=== PATIENT | female | born 2000 | race Caucasian/White ===

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

== ENCOUNTER 2021-05-28 00:35 | Day surgery (SDC) | payer BC, SELFPAY ==
[2021-05-13 13:37] VITALS: BMI 32.3
[2021-05-28 06:28] VITALS: BMI 37.0
[2021-05-28 06:29] VITALS: BP 132/93; PULSE 107; RESP 18; TEMP 36.3; O2SAT 98
[2021-05-28] MEDS: LACTATED RINGERS 1,000 ML 150 ML IV CONT (06:40)
--- NOTE | 2021-05-28 07:11 | P.PNAN_ITS ---
Anes - Initial Pre Proc Eval Procedure: Operation Date: 05/28/21 07:30 Proposed Procedures p Esophagogastroduodenoscopy & Colonoscopy - Tommy Myers MD Date/Time: 05/28/21 07:11 Surgeon: Tommy Myers MD Pre Op Diagnosis: abdominal distension, abdominal pain Patient Data Age: 20 Gender: F Height: 1.68 m Weight: 104.1 kg Last Vital Signs Temp 36.3 C L 05/28/21 06:29 Pulse 107 H 05/28/21 06:29 Resp 18 05/28/21 06:29 BP 132/93 H 05/28/21 06:29 Pulse Ox 98 05/28/21 06:29 Allergies Allergy/AdvReac Type Severity Reaction Status Date / Time guaifenesin [From Mucinex] Allergy Unknown Verified 05/28/21 06:26 amoxicillin AdvReac Diarrhea Verified 05/28/21 06:26 Home Medications Medication Instructions Recorded Confirmed Type drospiren-e.estrad-l.mefol 3 1 tablet PO DAILY #84 tablet 11/11/20 05/13/21 Rx mg-0.02 mg-0.451 mg(24)/0.451 mg(4)tablet Patient hx anesthesia problems: none Family hx anesthesia problems: post op nausea/vomiting Results Review: All pre-operative results and documents have been reviewed as part of the pre-operative evaluation. [facility] Past Medical History Medical History Anxiety Depression GERD (gastroesophageal reflux disease) Hypertension PCOS (polycystic ovarian syndrome) Surgical History Surgical History [place] teeth removed Family History Family History Mother Heart disease Depression Anxiety Social History Social History Smoking status: Never smoker Alcohol intake: never Substance use: never Gender identity (if verbalized by the patient): Female Spiritual care concerns: No Anes - Eval Final PreProcedure Day of Procedure 05/28/21 07:11 Patient weight: obese Heart: regular rate and rhythm Lungs: clear to auscultation Airway: Mallampati scale class II Neurological: alert and oriented Last oral intake: >/= 8 hours ASA classification: III Emergent: no Anesthetic plan: proceed Anesthesia type and monitoring: general GIVS and standard monitoring Results Review: All pre-operative results and documents have been reviewed as part of the pre-operative evaluation. Informed Consent: The patient's anesthetic plan and its attendant risks and benefits were discussed with the patient/family/POA. Questions were solicited and answers provided to the satisfaction of the patient/family/POA.
--- NOTE | 2021-05-28 07:23 | PM.HPGS ---
History of Present Illness History of Present Illness Consent: Risks, benefits, and alternatives have been discussed and questions answered. Patient agrees to proceed with procedure. Chief complaint: abdominal distension, abdominal pain Narrative: Viviana Baumann is a 20 year old female with gerd using antacids as needed, also bloating and constipation (BM every day but hard stool). Earlier today came to ER after syncope with dehydration because bowerl prep, now she is doing ok Review of Systems Constitutional: Constitutional: Denies headache(s) and Denies weakness Eyes: Eyes: Denies blurry vision ENT: Reports Normal hearing present, Denies headache(s) and Denies neck pain Cardiovascular: Cardiovascular: Denies chest pain and Denies dyspnea Respiratory: Respiratory: Denies dyspnea Gastrointestinal: Gastrointestinal: Reports no additional gastrointestinal complaints Genitourinary: Genitourinary: Denies dysuria Musculoskeletal: Musculoskeletal: Denies neck pain Integumentary/Breasts: Skin/Breast: Denies dry skin Neurologic: Reports Normal hearing present, Denies headache(s) and Denies weakness Psychiatric: Psychiatric: Denies anxiety Endocrine: Endocrine: Denies change in body appearance Hematologic/Lymphatic: Hematologic/Lymphatic: Denies easy bleeding Allergic/Immunologic: Allergic/Immunologic: Denies urticaria PMFSH Past Medical History Medical History (Updated 05/28/21 @ 07:26 by Tommy Myers MD) Anxiety Bloating Constipation Depression GERD (gastroesophageal reflux disease) Hypertension PCOS (polycystic ovarian syndrome) Surgical History Surgical History [place] teeth removed Family History Family History Mother Heart disease Depression Anxiety Social History Social History Smoking status: Never smoker Alcohol intake: never Substance use: never Gender identity (if verbalized by the patient): Female Spiritual care concerns: No Meds Home Medications and Allergies Home Medications Medication Instructions Recorded Confirmed Type drospiren-e.estrad-l.mefol 3 1 tablet PO DAILY #84 tablet 11/11/20 05/13/21 Rx mg-0.02 mg-0.451 mg(24)/0.451 mg(4)tablet Allergies Allergy/AdvReac Type Severity Reaction Status Date / Time guaifenesin [From Mucinex] Allergy Unknown Verified 05/28/21 06:26 amoxicillin AdvReac Diarrhea Verified 05/28/21 06:26 Vital Signs Vital Signs - 24 hr 05/28/21 06:29 Temperature 97.4 F L Pulse Rate 107 H Respiratory Rate 18 Blood Pressure 132/93 H Pulse Oximetry 98 Exam Const: General: comfortable and no acute distress HENMT: General nose exam: Normal nares present Eyes: General: appearance normal, both eyes and all related structures Neck: Neck: no JVD Resp: Auscultation: clear to auscultation bilaterally Cardio: Rate: regular rate Rhythm: regular rhythm GI: Inspection: non-distended GI Palp: Yes Soft to palpation Skin: General skin exam: normal color Neuro: General: gait normal Speech: normal speech Extrem: General: normal to inspection Psych: Mental Status: mental status grossly normal Assessment and Plan Assessment and plan (1) GERD (gastroesophageal reflux disease): Code(s): K21.9 - Gastro-esophageal reflux disease without esophagitis Status: Inactive Assessment and Plan: egd with bx (2) Bloating: Code(s): R14.0 - Abdominal distension (gaseous) Status: Acute (3) Constipation: Code(s): K59.00 - Constipation, unspecified Status: Acute Assessment and Plan: colonoscopy
[2021-05-28] MEDS: BENZOCAINE (*SP) 60 ML SPRAY CAN (HURRICAINE) 1 SPRAY MUCOUS MEM (07:32)
[2021-05-28 07:53] VITALS: BP 101/62; PULSE 79; RESP 12; O2SAT 98
--- NOTE | 2021-05-28 07:53 | SUR.OPER ---
EGD START 733, END 737 COLONOSCOPY START 742, END 075
[2021-05-28 08:03] VITALS: BP 105/67; PULSE 73; RESP 17; O2SAT 100
[2021-05-28 08:12] VITALS: BP 119/67; PULSE 70; RESP 18; O2SAT 100
== END 2021-05-28 08:26 | disposition home or self-care (01) ==
PROVIDERS: PCP Family Medicine; Visit Provider Internal Medicine Gastroenterology
PROC: 0DJ08ZZ Inspection of Upper Intestinal Tract, Via Natural or Artificial Opening Endoscopic (ICD-10-PCS; CPT 43235; principal; 2021-05-28 07:30)
DX: K59.00 Constipation, unspecified (principal); K21.9 Gastro-esophageal reflux disease without esophagitis; K29.70 Gastritis, unspecified, without bleeding; R10.13 Epigastric pain; R14.3 Flatulence; R55 Syncope and collapse; E86.0 Dehydration; F41.8 Other specified anxiety disorders; I10 Essential (primary) hypertension; E28.2 Polycystic ovarian syndrome; R14.0 Abdominal distension (gaseous)
CPT/HCPCS: 45378; 43239; 88305; J2001; J2704; J7120

== ENCOUNTER 2021-05-28 01:46 | Emergency (ER) | payer BC, SELFPAY ==
[2021-05-28 01:47] VITALS: BP 137/90; PULSE 110; RESP 18; TEMP 36.4; O2SAT 100
--- NOTE | 2021-05-28 01:58 | ECG_ITS ---
Measurements Intervals [place] Rate: 108 P: 30 AL: 108 QRS: 26 QRSD: 96 T: 5 QT: 334 QTc: 448 Interpretive Statements SINUS TACHYCARDIA WITH SHORT AL INTERVAL DELAYED PRECORDIAL R/S TRANSITION BORDERLINE T WAVE ABNORMALITY- INFERIOR LEADS ABNORMAL ECG Electronically Signed On 05-28-2021 6:52:51 [employer] by Beka Mercer D.O.
--- NOTE | 2021-05-28 02:06 | ED.SYNCOPE ---
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 She advises she has completed a bowel prep over the past 24 hours and while having a BM this evening, she began to feel light headed. She leaned forward to splash water on her face from the sink while remaining seated on the toilet. She reports she continued to feel weird and subsequently stood and ran into her mother's bedroom, where she experienced a syncopal episode. She recalls falling into laundry baskets and the bed. She denies hitting her head and she has no head or neck pain, back pain or otherwise injuries. She is scheduled to be here at this facility by 0600 for her colonoscopy. <KATHERINE Garcia - Last Filed: 05/28/21 02:15> MD complaint: felt faint <KATHERINE Garcia - Last Filed: 05/28/21 02:15> Onset (ago): hour(s) (1) <KATHERINE Garcia Last Filed: 05/28/21 02:15> Duration of episode: 1 <KATHERINE Garcia - Last Filed: 05/28/21 02:15> Prodromal symptoms: none <KATHERINE Garcia Last Filed: 05/28/21 02:15> Witnessed: Yes - by Other (mother) <KATHERINE Garcia - Last Filed: 05/28/21 02:15> Context: other (refer to HPI) <KATHERINE Garcia - Last Filed: 05/28/21 02:15> Injuries sustained associated with event: none <KATHERINE Garcia - Last Filed: 05/28/21 02:15> Current symptoms: back to baseline and other (tachycardic however, patient advises she is typically always tachycardic) <KATHERINE Garcia - Last Filed: 05/28/21 02:15> Treatments prior to arrival: none <KATHERINE Garcia - Last Filed: 05/28/21 02:15> Related Data Allergies/Adverse Reactions: Allergies Allergy/AdvReac Type Severity Reaction Status Date / Time amoxicillin AdvReac Diarrhea Verified 05/28/21 01:58 <KATHERINE Garcia - Last Filed: 05/28/21 02:15> Review of Systems Review of Systems: refer to HPI <KATHERINE Garcia - Last Filed: 05/28/21 02:15> [facility] Past Medical History Medical History: Medical History PCOS (polycystic ovarian syndrome) <KATHERINE Garcia - Last Filed: 05/28/21 02:15> Surgical History Surgical History: Surgical History [place] teeth removed <KATHERINE Garcia - Last Filed: 05/28/21 02:15> Family History Family History: Family History Mother Heart disease Depression Anxiety <KATHERINE Garcia - Last Filed: 05/28/21 02:15> Social History Social History: Social History Smoking status: Never smoker Alcohol intake: never Substance use: never Gender identity (if verbalized by the patient): Female Spiritual care concerns: No <KATHERINE Garcia - Last Filed: 05/28/21 02:15> Exam Const: General: cooperative, healthy appearing, comfortable, no acute distress, well developed, alert, awake and Physically active <KATHERINE Garcia - Last Filed: 05/28/21 02:15> Nutritional Appearance: obese <KATHERINE Garcia - Last Filed: 05/28/21 02:15> Orientation/consciousness: oriented to person, oriented to place, o
[2021-05-28] MEDS: SODIUM CHLORIDE 0.9% IV 1,000 ML 17 ML IV CONT (02:09)
[2021-05-28 02:10] LABS: Basophils Percent Auto 0.3 % (0.2-1.2); Eosinophils Absolute Auto 0.1 K/mm3 (0-0.3); Eosinophils Percent Auto 0.5 % (0-4.4); Hemoglobin 15.3 g/dL (12.0-15.0); Immature Granulocyte Absolute 0.03 K/mm3 (0.00-0.031); Immature Granulocyte Percent A 0.3 % (0-0.5); Lymphocytes Absolute Auto 4.64 K/mm3 (0.9-3.2); Lymphocytes Percent Auto 43.1 % (18.3-44.2); Mean Corpuscular HGB Conc 33.3 g/dl (32-36); Mean Corpuscular Volume 84.2 fl (80-100); Mean Platelet Volume 10.7 fl (7.4-10.4); Monocytes Absolute Auto 0.7 K/mm3 (0.1-0.6); Monocytes Percent Auto 6.4 % (2.6-8.5); Neutrophils Absolute Auto 5.3 K/mm3 (1.3-6.7); Neutrophils Percent Auto 49.4 % (45.5-73.1); Platelet Count Result 318 k/mm3 (150-375); Red Blood Count 5.46 M/mm3 (4.2-5.4); Red Cell Distribution Width 13.2 % (11.5-14.5); White Blood Count 10.8 K/mm3 (4.5-10.0)
[2021-05-28 02:48] LABS: Alanine Aminotransferase 52 U/L (4-35); Albumin Level 4.5 g/dL (3.7-5.6); Alkaline Phosphatase 91 U/L (45-116); Anion Gap 12 mmol/L (8-16); Aspartate Amino Transferase 28 U/L (14-36); Bilirubin,Total 0.4 mg/dL (0.2-1.3); Blood Urea Nitrogen 13 mg/dL (8-21); Calcium 9.7 mg/dL (8.9-10.7); Carbon Dioxide 21 mmol/L (22-30); Chloride 106 mmol/L (98-107); Estimated CRCL calculation 108 ml/min; Estimated Glomerular Filt Rate > 60; Glucose 111 mg/dL (65-110); Potassium 3.7 mmol/L (3.4-5.0); Sodium 139 mmol/L (134-143)
[2021-05-28 02:58] LABS: SPREG INTERNAL CONTROL Positive; Serum Qual hCG Negative
[2021-05-28 03:05] LABS: Add Urine Microscopic? YES; Appearance Urine Clear (Clear); Bilirubin Urine Negative (Negative); Blood Urine 3+ (Negative); Color Urine Yellow (Yellow); Glucose Urine UA Negative (Negative); Ketones Urine Negative (Negative); Leukocyte Esterase Ur Negative LEU/UL (Negative); Nitrate Urine Negative (Negative); Protein Urine 1+ mg/dL (Negative); RBC Urine 0-2 /hpf (0-2); Urobilinogen Urine Negative mg/dL (<2.0)
[2021-05-28 03:22] LABS: Thyroid Stimulating Hormone Reflex 0.939 uIU/mL (0.465-4.68)
[2021-05-28 03:50] VITALS: PULSE 87; O2SAT 100
== END 2021-05-28 03:53 | disposition home or self-care (01) ==
PROVIDERS: Nurse Practitioner Family; Emergency Provider Emergency Medicine; PCP Family Medicine
DX: R55 Syncope and collapse (principal); E28.2 Polycystic ovarian syndrome; R00.0 Tachycardia, unspecified; R94.31 Abnormal electrocardiogram [ECG] [EKG]
CPT/HCPCS: 36415; 80053; 81001; 84443; 84703; 85025; 93005; 96360; 99283; J7030

== ENCOUNTER 2021-09-26 05:43 | Emergency (ER) | payer OTHER, BC, SELFPAY ==
--- NOTE | ~2021-09-26 | XR_ITS ---
EXAMINATION: XR ankle LT min 3V DATE: 09/26/2021 06:51 INDICATION: Left ankle pain TECHNIQUE: Anteroposterior, lateral, mortise, and additional oblique view of the ankle were obtained. COMPARISON: 03/20/2013 FINDINGS: There is no fracture, dislocation, or subluxation. The bones, soft tissues, and joint space s are normal. IMPRESSION: 1. No acute osseous abnormality. Reviewed, dictated and finalized at location A.
--- NOTE | ~2021-09-26 | XR_ITS ---
EXAMINATION: XR knee LT 3V DATE: 09/26/2021 06:51 INDICATION: Left knee pain TECHNIQUE: Three views of the left knee were obtained. COMPARISON: 04/25/2016 FINDINGS: Alignment is normal. No fracture or osteochondral lesion. Joint spaces are normal with no e rosions. No joint effusion/synovitis. Soft tissues are unremarkable. IMPRESSION: 1. No acute osseous abnormality. Reviewed, dictated and finalized at location A.
[2021-09-26 05:48] VITALS: BP 128/84; PULSE 87; RESP 16; TEMP 36.7; O2SAT 100
--- NOTE | 2021-09-26 06:35 | ED.GENADULT ---
HPI - General Adult General Chief complaint: Extremity Injury, Lower Stated complaint: L knee injury Time Seen by Provider: 09/26/21 06:07 History of Present Illness HPI narrative: Patient a 21-year-old female that presents to the emergency department with chief complaint of left lower extremity injury. The patient reports she was at work and accidentally walked into a shelving unit the patient states she had below her knee fell forward and struck her knee against the metal. The patient reports she has a little bit of discomfort in her left ankle as well the patient denies head injury denies loss of consciousness denies neck pain. Patient denies any lacerations reports she does have bruising present on her knee. The patient reports previous injuries to that knee and has had Myles's cyst of the left knee Related Data Home Medications Medication Instructions Recorded Confirmed escitalopram oxalate 10 mg tablet 10 mg PO DAILY 07/22/21 07/28/21 (Lexapro) Allergies Allergy/AdvReac Type Severity Reaction Status Date / Time guaifenesin [From Mucinex] Allergy Unknown Verified 07/22/21 10:25 amoxicillin AdvReac Diarrhea Verified 07/22/21 10:25 Review of Systems Review of Systems: A 10 system review of systems was completed on the patient and is negative except for what is stated in the HPI. Nursing and ancillary documentation was reviewed. PMFSH Past Medical History Medical History Anxiety Bloating Constipation Depression GERD (gastroesophageal reflux disease) Hypertension PCOS (polycystic ovarian syndrome) Surgical History Surgical History [place] teeth removed Family History Family History Mother Heart disease Depression Anxiety Social History Social History Smoking status: Never smoker Alcohol intake: never Substance use: never Gender identity (if verbalized by the patient): Female Spiritual care concerns: No Exam Narrative: GENERAL: Well-appearing, well-nourished, and in no acute distress. HEAD: Normocephalic, atraumatic. EYES: PERRLA and EOMI. ENT: Nares clear, no rhinorrhea or epistaxis. Mucous membranes moist. NECK: Supple. CHEST: Clear to auscultation. No respiratory distress. HEART: Regular rate and rhythm. No murmur heard. Normal peripheral pulses. ABDOMEN: Soft, nontender, nondistended, normal active bowel sounds. EXTREMITIES: Normal range of motion. No edema. There is bruising present on the knee and inferior to the knee and the left lower extremity. There is mild tenderness to palpation in the left knee and there is mild tenderness to palpation of the left ankle. SKIN: Warm, dry, no rash. NEURO: No focal deficits. Alert and oriented x3. PSYCH: Normal mood and affect. Course Vital Signs Vital signs: Vital Signs Temperature 36.7 C 09/26/21 05:48 Pulse Rate 87 09/26/21 05:48 Respiratory Rate 16 09/26/21 05:48 Blood Pressure 128/84 09/26/21 05:48 Pulse Oximetry 100 09/26/21 05:48 Oxygen Delivery Room Air 09/26/21 05:48 Temperature 36.7 C 09/26/21 05:48 Pulse Rate 87 09/26/21 05:48 Respiratory Rate 16 09/26/21 05:48 Blood Pressure 128/84 09/26/21 05:48 Pulse Oximetry 100 09/26/21 05:48 Oxygen Delivery Room Air 09/26/21 05:48 Medical Decision Making Vital Signs Vital Signs: Vital Signs Temperature 36.7 C 09/26/21 05:48 Pulse Rate 87 09/26/21 05:48 Respiratory Rate 16 09/26/21 05:48 Blood Pressure 128/84 09/26/21 05:48 Pulse Oximetry 100 09/26/21 05:48 Oxygen Delivery Room Air 09/26/21 05:48 Temperature 36.7 C 09/26/21 05:48 Pulse Rate 87 09/26/21 05:48 Respiratory Rate 16 09/26/21 05:48 Blood Pressure 128/84 09/26/21 05:48 Pulse O
[2021-09-26 07:13] VITALS: BP 119/85; PULSE 73; RESP 20; O2SAT 100
== END 2021-09-26 07:14 | disposition home or self-care (01) ==
PROVIDERS: Emergency Provider Emergency Medicine; PCP Family Medicine
DX: S80.02XA Contusion of left knee, initial encounter (principal); I10 Essential (primary) hypertension; E28.2 Polycystic ovarian syndrome; K21.9 Gastro-esophageal reflux disease without esophagitis; F41.9 Anxiety disorder, unspecified; F32.A Depression, unspecified; W01.198A Fall on same level from slipping, tripping and stumbling with subsequent striking against other object, initial encounter
CPT/HCPCS: 73562; 73610; 99284

== ENCOUNTER 2021-10-28 03:53 | Emergency (ER) | payer BC, SELFPAY ==
--- NOTE | ~2021-10-28 | CT_ITS ---
EXAMINATION: CT abdomen pelvis w con DATE: 10/28/2021 05:17 INDICATION: Postcoital pelvic pain TECHNIQUE: Computed tomography (CT) of the abdomen and pelvis was performed with 100 mL Omnipaque-300 intravenous contrast. Automated exposure control and iterative reconstruction technique were employe d. The dose-length product was 1300.34 mGy-cm. COMPARISON: None FINDINGS: Lung bases are clear. Heart size is normal. No pericardial or pleural effusion. Liver, gallbladder, s pleen, pancreas, bilateral adrenal glands and kidneys are normal. Bowels including the appendix are n ormal. Bladder is normal. Anteverted uterus and bilateral adnexa are unremarkable. No free intraperit [place] gas or fluid. No pathologically enlarged abdominal or pelvic lymphadenopathy. Bones are unremar kable. IMPRESSION: 1. No acute intra-abdominal/pelvic process. Reviewed, dictated and finalized at location A.
[2021-10-28 03:56] VITALS: BP 135/87; PULSE 87; RESP 18; TEMP 36.7; O2SAT 100
[2021-10-28] MEDS: ONDANSETRON INJ 4 MG/2 ML VIAL IV PUSH (04:24)
[2021-10-28 04:44] LABS: Basophils Percent Auto 0.1 % (0.2-1.2); Eosinophils Absolute Auto 0.1 K/mm3 (0-0.3); Eosinophils Percent Auto 0.8 % (0-4.4); Hematocrit 40.7 % (37.0-47.0); Hemoglobin 13.1 g/dL (12.0-15.0); Immature Granulocyte Absolute 0.02 K/mm3 (0.00-0.031); Immature Granulocyte Percent A 0.3 % (0-0.5); Lymphocytes Percent Auto 42.2 % (18.3-44.2); Mean Corpuscular HGB Conc 32.2 g/dl (32-36); Mean Corpuscular Hemoglobin 26.5 pg (26-34); Mean Corpuscular Volume 82.2 fl (80-100); Mean Platelet Volume 10.9 fl (7.4-10.4); Monocytes Absolute Auto 0.6 K/mm3 (0.1-0.6); Monocytes Percent Auto 8.4 % (2.6-8.5); Neutrophils Absolute Auto 3.7 K/mm3 (1.3-6.7); Neutrophils Percent Auto 48.2 % (45.5-73.1); Platelet Count Result 286 k/mm3 (150-375); Red Blood Count 4.95 M/mm3 (4.2-5.4); Red Cell Distribution Width 13.2 % (11.5-14.5); White Blood Count 7.6 K/mm3 (4.5-10.0)
[2021-10-28 04:57] LABS: Alanine Aminotransferase 50 U/L (6-35); Albumin Level 4.2 g/dL (3.5-5.1); Alkaline Phosphatase 113 U/L (38-126); Anion Gap 9 mmol/L (8-16); Aspartate Amino Transferase 26 U/L (14-36); Bilirubin,Total 0.3 mg/dL (0.2-1.3); Blood Urea Nitrogen 16 mg/dL (7-17); Calcium 9.3 mg/dL (8.4-10.2); Carbon Dioxide 29 mmol/L (22-30); Chloride 103 mmol/L (98-107); Estimated CRCL calculation 107 ml/min; Estimated Glomerular Filt Rate > 60; Glucose 88 mg/dL (65-110); Lipase 91 U/L (23-300); Potassium 3.8 mmol/L (3.4-5.0); Sodium 141 mmol/L (137-145)
[2021-10-28 05:26] LABS: Appearance Urine Clear (Clear); Bilirubin Urine Negative (Negative); Blood Urine Negative (Negative); Color Urine Yellow (Yellow); Glucose Urine UA Negative (Negative); Ketones Urine Negative (Negative); Leukocyte Esterase Ur Negative LEU/UL (Negative); Nitrate Urine Negative (Negative); Protein Urine Negative (Negative); Specific Grav Ur 1.025 (1.001-1.035); Urobilinogen Urine 0.2 mg/dL (<2.0); pH Urine 5.5 (5.0-9.0)
[2021-10-28 05:29] LABS: Mucus Urine Rare /lpf; Squamous Epithelial Cell Urine Few /hpf (Few); WBC Urine 0-3 /hpf
[2021-10-28 05:33] LABS: Add Urine Microscopic? NO
--- NOTE | 2021-10-28 06:32 | ED.ABDPAIN ---
HPI - Abdominal Pain General Chief Complaint: Abdominal Pain Stated Complaint: abd pain Time Seen by Provider: 10/28/21 04:09 History of Present Illness HPI narrative: 21-year-old female with history of PCOS and likely endometritis presents with severe pelvic pain that started after intercourse, patient states that she has had pain like this multiple times in the past. Denies any discharge or concern for STI she is monogamous with her BF. Related Data Home Medications Medication Instructions Recorded Confirmed escitalopram oxalate 10 mg tablet 10 mg PO DAILY 07/22/21 07/28/21 (Lexapro) Allergies Allergy/AdvReac Type Severity Reaction Status Date / Time guaifenesin [From Mucinex] Allergy Unknown Verified 07/22/21 10:25 amoxicillin AdvReac Diarrhea Verified 07/22/21 10:25 Review of Systems Review of Systems: CONST: No fever. HEENT: No sore throat C/V: No chest pain RESP: No cough GI: Reports pelvic pain, nausea vomiting : No dysuria. M/S: No joint pain. SKIN: No rash. NEURO: [No headache or focal numbness or weakness] PSYCH: [No depression] [facility] Past Medical History Medical History Anxiety Bloating Constipation Depression GERD (gastroesophageal reflux disease) Hypertension PCOS (polycystic ovarian syndrome) Surgical History Surgical History [place] teeth removed Family History Family History Mother Heart disease Depression Anxiety Social History Social History Smoking status: Never smoker Alcohol intake: never Substance use: never Gender identity (if verbalized by the patient): Female Spiritual care concerns: No Exam Narrative: EXAMINATION OF ORGAN SYSTEMS/BODY AREAS: Constitutional: Vital signs per nursing GENERAL:[No acute distress, non-toxic appearing.] HEAD: Normal with no signs of head trauma. EYES: EOMI, conjunctiva normal ENT: Hearing grossly intact LUNGS: Nonlabored breathing. HEART: [Regular rate and rhythm] ABD: [Soft], [nontender to palpation] : Minimal tenderness to palpation, no discharge or laceration or bleeding noted on speculum exam EXT: Normal range of motion SKIN: [No rashes or lesions.] NEURO: [Alert and oriented x 3. No gross focal sensory or strength deficits.] PSYCH: Normal affect Course Course Emergency Course: 21-year-old female presenting with pelvic pain which feels similar to her usual endometriosis/PCOS and occurred during sex, vital signs stable, exam shows patient was resting comfortably, with soft nontender abdomen and no adnexal or cervical motion tenderness or discharge. Concern is for possible painful menses from PCOS/endo, /ectopic, UTI, ruptured cyst, less likely torsion without specific left or right pelvic pain, less likely appendicitis without right lower quadrant pain or STD without discharge or cervical motion or adnexal tenderness. Labs within acceptable limits, CT unremarkable for acute process. Patient on re-eval no new abdominal tenderness, stable for discharge home at this time with follow up to her OBGYN, return precautions provided. Vital Signs Vital signs: Vital Signs Temperature 98.1 F 10/28/21 03:56 Pulse Rate 87 10/28/21 03:56 Respiratory Rate 18 10/28/21 03:56 Blood Pressure 135/87 10/28/21 03:56 Pulse Oximetry 100 10/28/21 03:56 Oxygen Delivery Room Air 10/28/21 03:56 Temperature 98.1 F 10/28/21 03:56 Pulse Rate 87 10/28/21 03:56 Respiratory Rate 18 10/28/21 03:56 Blood Pressure 135/87 10/28/21 03:56 Pulse Oximetry 100 10/28/21 03:56 Oxygen Delivery Room Air 10/28/21 03:56 MDM - Abdominal Pain Lab Data Result diagrams: 10/28/21 04:11 10/28/21 04:11 Labs: Lab Results 10/28/21 10/28/21 10/28/21 Range/Units 04:11
[2021-10-28] MEDS: KETOROLAC 30 MG/ML VIAL (*BKC) IV PUSH (06:55)
[2021-10-28 07:15] VITALS: BP 123/88; PULSE 90; RESP 19; O2SAT 99
== END 2021-10-28 07:15 | disposition home or self-care (01) ==
PROVIDERS: Emergency Provider Emergency Medicine; PCP Family Medicine
DX: E28.2 Polycystic ovarian syndrome (principal); R10.2 Pelvic and perineal pain; N94.6 Dysmenorrhea, unspecified; N80.9 Endometriosis, unspecified; K21.9 Gastro-esophageal reflux disease without esophagitis; I10 Essential (primary) hypertension; F41.9 Anxiety disorder, unspecified; F32.A Depression, unspecified
CPT/HCPCS: 36415; 74177; 80053; 81003; 81025; 83690; 85025; 96374; 96375; 99284; J1885; J2405; Q9967

== ENCOUNTER 2022-01-03 15:33 | Outpatient (CLI) | payer BC, SELFPAY ==
--- NOTE | ~2022-01-03 | XR_ITS ---
XR knee LT 3V 01/03/2022 16:17 INDICATION: Left knee pain PROCEDURE: 3 views left knee COMPARISON: No prior study FINDINGS: Fracture, dislocation or subluxation is not identified. No significant joint effusion. The soft tissues appear within normal limits. No foreign bodies are identified. IMPRESSION: 1: NO ACUTE BONE OR JOINT ABNORMALITY IDENTIFIED. Reviewed, dictated and finalized at location A.
[2022-01-03 16:28] LABS: Hemoglobin A1C 5.1 % (<5.7)
[2022-01-05 11:51] LABS: DHEA-Sulfate 153 mcg/dL (51-321)
[2022-01-05 12:55] LABS: FSH 5.5 mIU/mL (***); LH 9.2 mIU/mL (***); Progesterone 4.5 ng/mL (***)
[2022-01-06 09:18] LABS: Testosterone Total 61 ng/dL (2-45)
== END 2022-01-03 15:34 | disposition home or self-care (01) ==
PROVIDERS: Obstetrics & Gynecology; PCP Family Medicine; Visit Provider Family Medicine
DX: E28.2 Polycystic ovarian syndrome (principal)
CPT/HCPCS: 36415; 73562; 82627; 83001; 83002; 83036; 84144; 84403

== ENCOUNTER 2022-03-03 14:55 | Outpatient (CLI) | payer BC, SELFPAY ==
--- NOTE | ~2022-03-03 | US_ITS ---
EXAMINATION: US pelvic complete w TV DATE: 03/03/2022 16:19 INDICATION: Ovarian cyst. Comparison:CT dated 10/28/2021 TECHNIQUE: Multiple transabdominal and endovaginal sonographic images of the pelvis performed. FINDINGS: The uterus measures 6.2 x 3.9 x 4.3 cm. The endometrial complex measures 9 mm. The right ovary measures 4.6 x 2.6 x 3.1 cm and the left ovary measures 3.6 x 2.3 x 3.6 cm. There ar e small follicles in each ovary. Normal doppler signal in both ovaries. There is no free fluid in the pelvis. There are no abnormal masses seen on either side. IMPRESSION: 1. Unremarkable pelvic ultrasound. Reviewed, dictated and finalized at location A. ERN HAND
== END 2022-03-03 14:56 | disposition home or self-care (01) ==
PROVIDERS: PCP Family Medicine; Visit Provider Obstetrics & Gynecology
DX: N83.209 Unspecified ovarian cyst, unspecified side (principal)
CPT/HCPCS: 76830; 76856

== ENCOUNTER 2022-03-07 02:09 | Emergency (ER) | payer BC, SELFPAY ==
--- NOTE | ~2022-03-07 | XR_ITS ---
XR ankle RT min 3V, XR foot RT min 3V 03/07/2022 02:39 Indication: Status post fall. Procedure: 4 views right ankle and 4 views right foot Comparison: No prior studies for comparison. Findings: Ankle mortise intact. No acute fracture or traumatic malalignment. There is an old avulsion injury superior margin of the navicular. No soft tissue abnormality. Talar dome is normal. Lisfranc joint intact. No foreign bodies. Impression: 1: No acute bone or joint abnormality. Reviewed, dictated and finalized at location A. ND MATE Impression: 1: No acute bone or joint abnormality. Impression: 1: No acute bone or joint abnormality.
[2022-03-07 02:12] VITALS: BP 124/73; PULSE 82; RESP 18; TEMP 36.1; O2SAT 99
--- NOTE | 2022-03-07 02:23 | ED.GENADULT ---
HPI - General Adult General Chief complaint: Extremity Injury, Lower Stated complaint: Right ankle pain Time Seen by Provider: 03/07/22 02:20 History of Present Illness HPI narrative: Is a 21-year-old female who presents to Emergency Department with a chief complaint of right ankle pain. The patient reports that she has history of a knee injury that causes her knee to intermittently give out. The patient reports that she was walking up the stairs her knee gave out and she fell the patient reports that she twisted her right ankle reports that she has swelling in the anterior aspect of her right ankle. The patient also reports there is some bruising present as well patient reports there is pain with straightening of her foot and with attempting to bear weight. Patient denies head injury denies loss of consciousness Related Data Home Medications Medication Instructions Recorded Confirmed escitalopram oxalate 10 mg tablet 10 mg PO DAILY 07/22/21 07/28/21 (Lexapro) Allergies Allergy/AdvReac Type Severity Reaction Status Date / Time guaifenesin [From Mucinex] Allergy Unknown Verified 03/07/22 02:14 amoxicillin AdvReac Diarrhea Verified 03/07/22 02:14 Review of Systems Review of Systems: A 10 system review of systems was completed on the patient and is negative except for what is stated in the HPI. Nursing and ancillary documentation was reviewed. PMFSH Past Medical History Medical History Anxiety Bloating Constipation Depression GERD (gastroesophageal reflux disease) Hypertension PCOS (polycystic ovarian syndrome) Surgical History Surgical History [place] teeth removed Family History Family History Mother Heart disease Depression Anxiety Social History Social History Smoking status: Never smoker Alcohol intake: never Substance use: never Gender identity (if verbalized by the patient): Female Spiritual care concerns: No Exam Narrative: GENERAL: Well-appearing, well-nourished, and in no acute distress. HEAD: Normocephalic, atraumatic. EYES: PERRLA and EOMI. ENT: Nares clear, no rhinorrhea or epistaxis. Mucous membranes moist. NECK: Supple. CHEST: Clear to auscultation. No respiratory distress. HEART: Regular rate and rhythm. No murmur heard. Normal peripheral pulses. ABDOMEN: Soft, nontender, nondistended, normal active bowel sounds. EXTREMITIES: Normal range of motion, there is tenderness to palpation on the lateral aspect of the right ankle anterior to the lateral malleolus. No edema. SKIN: Warm, dry, no rash. NEURO: No focal deficits. Alert and oriented x3. PSYCH: Normal mood and affect. Course Vital Signs Vital signs: Vital Signs Temperature 36.1 C L 03/07/22 02:12 Pulse Rate 82 03/07/22 02:12 Respiratory Rate 18 03/07/22 02:12 Blood Pressure 124/73 03/07/22 02:12 Pulse Oximetry 99 03/07/22 02:12 Oxygen Delivery Room Air 03/07/22 02:12 Temperature 36.1 C L 03/07/22 02:12 Pulse Rate 82 03/07/22 02:12 Respiratory Rate 18 03/07/22 02:12 Blood Pressure 124/73 03/07/22 02:12 Pulse Oximetry 99 03/07/22 02:12 Oxygen Delivery Room Air 03/07/22 02:12 Medical Decision Making Vital Signs Vital Signs: Vital Signs Temperature 36.1 C L 03/07/22 02:12 Pulse Rate 82 03/07/22 02:12 Respiratory Rate 18 03/07/22 02:12 Blood Pressure 124/73 03/07/22 02:12 Pulse Oximetry 99 03/07/22 02:12 Oxygen Delivery Room Air 03/07/22 02:12 Temperature 36.1 C L 03/07/22 02:12 Pulse Rate 82 03/07/22 02:12 Respiratory Rate 18 03/07/22 02:12 Blood Pressure 124/73 03/07/22 02:12 Pulse Oximetry 99 03/07/22 02:12 Oxygen Delivery Room Air 03/07/22 02:12 Imaging Data
== END 2022-03-07 03:15 | disposition home or self-care (01) ==
PROVIDERS: Emergency Provider Emergency Medicine; PCP Family Medicine
DX: S93.401A Sprain of unspecified ligament of right ankle, initial encounter (principal); I10 Essential (primary) hypertension; E28.2 Polycystic ovarian syndrome; K21.9 Gastro-esophageal reflux disease without esophagitis; F41.9 Anxiety disorder, unspecified; F32.A Depression, unspecified; W10.9XXA Fall (on) (from) unspecified stairs and steps, initial encounter
CPT/HCPCS: 73610; 73630; 99283

== ENCOUNTER 2022-04-21 14:49 | Outpatient (CLI) | payer BC, SELFPAY ==
[2022-04-24 12:46] LABS: Insulin Level Total 24.6 uIU/mL (<=19.6)
== END 2022-04-21 14:50 | disposition home or self-care (01) ==
LOC: ANHLAB 14:51
PROVIDERS: PCP Family Medicine; Visit Provider Obstetrics & Gynecology
DX: E28.2 Polycystic ovarian syndrome (principal)
CPT/HCPCS: 36415; 83525

== ENCOUNTER 2022-05-24 14:52 | Outpatient (RCR) | payer BC, SELFPAY ==
[2022-05-24 15:32] VITALS: BMI 41.3
[2022-05-24 15:33] VITALS: BMI 41.3
== END 2022-08-08 13:20 | disposition home or self-care (01) ==
LOC: ANHDMC 14:52
PROVIDERS: PCP Family Medicine; Visit Provider Obstetrics & Gynecology
DX: R73.9 Hyperglycemia, unspecified (principal); E28.2 Polycystic ovarian syndrome; Z79.84 Long term (current) use of oral hypoglycemic drugs; Z71.3 Dietary counseling and surveillance
CPT/HCPCS: 97802

== ENCOUNTER 2022-07-25 11:20 | Outpatient (CLI) | payer BC, SELFPAY ==
[2022-07-25 12:22] LABS: Hemoglobin A1C 5.1 % (<5.7)
[2022-07-28 13:27] LABS: Insulin Level Total 18.4 uIU/mL (<=19.6)
[2022-07-29 04:53] LABS: FSH 6.2 mIU/mL (***); LH 10.5 mIU/mL (***); Progesterone 0.3 ng/mL (***)
[2022-07-29 11:34] LABS: Testosterone Total 80 ng/dL (2-45)
== END 2022-07-25 11:21 | disposition home or self-care (01) ==
LOC: ANHLAB 11:21
PROVIDERS: PCP Family Medicine; Visit Provider Obstetrics & Gynecology
DX: E28.2 Polycystic ovarian syndrome (principal)
CPT/HCPCS: 36415; 83001; 83002; 83036; 83525; 84144; 84403

== ENCOUNTER 2022-08-02 16:25 | Outpatient (CLI) | payer BC, SELFPAY ==
[2022-08-07 04:04] LABS: Progesterone 0.4 ng/mL (***)
== END 2022-08-02 16:26 | disposition home or self-care (01) ==
LOC: ANHLAB 16:27
PROVIDERS: PCP Family Medicine; Visit Provider Obstetrics & Gynecology
DX: E28.2 Polycystic ovarian syndrome (principal)
CPT/HCPCS: 36415; 84144

== ENCOUNTER 2022-10-26 15:58 | Outpatient (CLI) | payer BC, SELFPAY ==
[2022-10-26 16:55] LABS: Beta HCG Quantitative < 2.39 mIU/ML
[2022-10-26 18:17] LABS: Hemoglobin A1C 5.5 % (<5.7)
[2022-10-29 13:12] LABS: Insulin Level Total 22.5 uIU/mL (<=19.6)
[2022-10-30 05:23] LABS: FSH 6.9 mIU/mL (***); LH 11.4 mIU/mL (***); Progesterone 0.4 ng/mL (***)
[2022-10-30 12:30] LABS: Testosterone Total 90 ng/dL (2-45)
== END 2022-10-26 15:59 | disposition home or self-care (01) ==
LOC: ANHLAB 15:59
PROVIDERS: PCP Family Medicine; Visit Provider Obstetrics & Gynecology
DX: N92.6 Irregular menstruation, unspecified (principal)
CPT/HCPCS: 36415; 83001; 83002; 83036; 83525; 84144; 84403; 84702

== ENCOUNTER 2022-11-26 21:14 | Emergency (ER) | payer BC, SELFPAY ==
--- NOTE | ~2022-11-26 | CT_ITS ---
EXAMINATION: CT abdomen pelvis w con DATE: 11/26/2022 22:49 INDICATION: Right lower quadrant and right flank abdominal pain, tenderness. Nausea. History of endom etriosis. TECHNIQUE: Computed tomography (CT) of the abdomen and pelvis was performed with 100 CC Omnipaque 350 intravenous contrast. Automated exposure control and iterative reconstruction technique were employe d. Exam dose: 1679.70 mGy-cm total exam DLP. COMPARISON: 10/28/2021 CT abdomen pelvis FINDINGS: The lung bases are clear. Normal heart size. No pericardial or pleural effusion. There is diffuse hepatic steatosis. No hepatic masses occupying mass lesion. Gallbladder is present a nd appears unremarkable. No bile duct or pancreatic duct dilatation. No pancreatic mass lesion or marvin cification. Normal splenic size. Normal morphology of the adrenal glands. No renal mass lesion or urinary tract calculus or hydroureteronephrosis. The urinary bladder is unrem arkable. Normal caliber of the abdominal aorta. No intraperitoneal or retroperitoneal or pelvic mass lesion or adenopathy or ascites. Normal appendix. Diverticulosis of the colon. No CT evidence of diverticulitis. No bowel obstruction, bowel wall thickening, pneumatosis or intraperitoneal free air. Small fat-containing umbilical hernia. Included skeletal structures are unremarkable. IMPRESSION: Hepatic steatosis Normal appendix Mild colonic diverticulosis Reviewed, dictated and finalized at Location A. Reviewed, dictated and finalized at location A.
[2022-11-26 21:17] VITALS: BP 124/83; PULSE 135; RESP 18; TEMP 36.2; O2SAT 99
--- NOTE | 2022-11-26 21:39 | ED.GENADULT ---
HPI - General Adult General Chief complaint: Unspecified Stated complaint: Right Side Pain, Vaginal Bleeding Time Seen by Provider: 11/26/22 21:26 Source: patient Mode of arrival: ambulatory Limitations: no limitations History of Present Illness HPI narrative: This is a 22-year-old female with PMH of PCOS, endometriosis who presents to the ED with chief complaint of right flank pain along with vaginal bleeding. She states she thinks she started her period 3 days ago but has had heavier than normal bleeding. She states she has been getting anxious because she is having right flank pain beginning today. States she was recently treated for a possible UTI couple weeks ago in which she took a full course of Keflex. Patient states the pain feels like a pulled muscle. Denies any injuries. Endorses nausea but attributes this to anxiety. Denies fevers, chills, vomiting, diarrhea, problems with bowel movements, urinary burning or frequency, or any other vaginal symptoms. Related Data Allergies Allergy/AdvReac Type Severity Reaction Status Date / Time guaifenesin [From Mucinex] Allergy Unknown Verified 10/26/22 15:01 amoxicillin AdvReac Diarrhea Verified 10/26/22 15:01 Review of Systems Review of Systems: All systems as dictated in HPI PMFSH Past Medical History Medical History Anxiety Bloating Constipation Depression GERD (gastroesophageal reflux disease) Hypertension PCOS (polycystic ovarian syndrome) Surgical History Surgical History [place] teeth removed Family History Family History Mother Heart disease Depression Anxiety Social History Social History Smoking status: Never smoker Alcohol intake: never Substance use: never Lack of Transportation: No Lack of Food: Never True Current Housing: I Have Housing Concerned About Future Housing: No Difficulty Paying Gas/Electric Bills: No Difficulty Paying for Meds: No Currently Unemployed: No Education: High School Diploma/GED Difficulty w/ Childcare or Family Care: No Living arrangements: with family Gender identity (if verbalized by the patient): Female Spiritual care concerns: No Exam Narrative: GENERAL: Well-appearing, well-nourished, and in no acute distress. Lays on left side. HEAD: Normocephalic, atraumatic. EYES: PERRLA and EOMI. ENT: Nares clear, no rhinorrhea or epistaxis. Mucous membranes moist. Oropharynx without tonsillar hypertrophy exudate or other lesions. NECK: Supple. No adenopathy or masses. CHEST: No respiratory distress. Clear to auscultation. No wheezes rales or rhonchi HEART: Regular rate and rhythm. No murmur heard. Normal peripheral pulses. ABDOMEN: Obese abdomen. Mild right lower quadrant tenderness. Soft, otherwise nontender, nondistended, normal active bowel sounds. Negative McBurney's point. Negative Squires sign. Negative peritoneal signs. MSK: Normal range of motion. No edema. SKIN: Warm, dry, no rash. NEURO: Alert and oriented x3. No focal deficits. PSYCH: Anxious mood. Appropriate affect. Course Course Emergency Course: Reevaluation 2023: Feeling pain-free and ready to go home. Vital Signs Vital signs: Vital Signs Temperature 97.2 F L 11/26/22 21:17 Pulse Rate 135 H 11/26/22 21:17 Respiratory Rate 18 11/26/22 21:17 Blood Pressure 124/83 11/26/22 21:17 Pulse Oximetry 99 11/26/22 21:17 Oxygen Delivery Room Air 11/26/22 21:17 Temperature 98 F 11/26/22 22:55 Pulse Rate 94 11/26/22 22:55 Respiratory Rate 13 11/26/22 22:55 Blood Pressure 123/93 H 11/26/22 22:55 Pulse Oximetry 100 11/26/22 22:55 Oxygen Delivery Room Air 11/26/22 21:17 Medical Decision Making MDM Narrative Medical decision making narrativ
[2022-11-26] MEDS: SODIUM CHLORIDE 0.9% IV 1,000 ML 999 ML IV CONT (22:13)
[2022-11-26 22:19] LABS: Basophils Percent Auto 0.3 % (0.2-1.2); Eosinophils Absolute Auto 0.1 K/mm3 (0-0.3); Hematocrit 42.6 % (37.0-47.0); Hemoglobin 14.4 g/dL (12.0-15.0); Immature Granulocyte Absolute 0.01 K/mm3 (0.00-0.031); Immature Granulocyte Percent A 0.1 % (0-0.5); Lymphocytes Absolute Auto 2.38 K/mm3 (0.9-3.2); Lymphocytes Percent Auto 35.7 % (18.3-44.2); Mean Corpuscular HGB Conc 33.8 g/dl (32-36); Mean Corpuscular Hemoglobin 28.8 pg (26-34); Mean Corpuscular Volume 85.2 fl (80-100); Monocytes Absolute Auto 0.4 K/mm3 (0.1-0.6); Neutrophils Absolute Auto 3.8 K/mm3 (1.3-6.7); Neutrophils Percent Auto 56.9 % (45.5-73.1); Platelet Count Result 271 k/mm3 (150-375); Red Cell Distribution Width 12.6 % (11.5-14.5); White Blood Count 6.7 K/mm3 (4.5-10.0)
[2022-11-26 22:24] LABS: Bacteria Urine None Seen /hpf; Non Pathogenic Casts 0-2; RBC Urine >100 /hpf (0-2); Squamous Epithelial Cell Urine Occasional /hpf (Few)
[2022-11-26 22:26] LABS: Alanine Aminotransferase 78 U/L (6-35); Albumin Level 4.1 g/dL (3.5-5.1); Alkaline Phosphatase 91 U/L (38-126); Anion Gap 7 mmol/L (8-16); Aspartate Amino Transferase 53 U/L (14-36); Bilirubin,Total 0.3 mg/dL (0.2-1.3); Blood Urea Nitrogen 12 mg/dL (7-17); Calcium 9.1 mg/dL (8.4-10.2); Carbon Dioxide 23 mmol/L (22-30); Chloride 108 mmol/L (98-107); Estimated CRCL calculation 123 ml/min; Estimated Glomerular Filt Rate > 60; Glucose 125 mg/dL (65-110); Potassium 4.1 mmol/L (3.4-5.0); Sodium 138 mmol/L (137-145)
[2022-11-26 22:27] LABS: INR 0.9; Partial Thromboplastin Time 27.1 SECONDS (22.3-36.8); Prothrombin Time 13.1 Seconds (11.1-14.7)
[2022-11-26 22:35] LABS: Appearance Urine Cloudy (Clear); Bilirubin Urine Negative (Negative); Blood Urine 3+ (Negative); Color Urine Red (Yellow); Glucose Urine UA Negative (Negative); Ketones Urine Negative (Negative); Leukocyte Esterase Ur 1+ LEU/UL (Negative); Nitrate Urine Negative (Negative); Protein Urine Trace mg/dL (Negative); pH Urine 6.5 (5.0-9.0)
[2022-11-26 22:38] LABS: Add Urine Microscopic? YES
[2022-11-26 22:55] VITALS: BP 123/93; PULSE 94; RESP 13; TEMP 36.6; O2SAT 100
[2022-11-27 00:35] VITALS: BP 127/82; PULSE 101; RESP 16; TEMP 36.7; O2SAT 98
== END 2022-11-27 00:36 | disposition home or self-care (01) ==
PROVIDERS: Emergency Provider Physician Assistant
DX: N39.0 Urinary tract infection, site not specified (principal); N92.0 Excessive and frequent menstruation with regular cycle; I10 Essential (primary) hypertension; N80.9 Endometriosis, unspecified; E28.2 Polycystic ovarian syndrome
CPT/HCPCS: 36415; 74177; 80053; 81001; 81025; 85025; 85610; 85730; 87086; 87088; 96360; 99284; J7030; Q9967

== ENCOUNTER 2022-12-09 01:09 | Day surgery (SDC) | payer BC, SELFPAY ==
[2022-11-30 12:58] VITALS: BMI 40.1
--- NOTE | 2022-11-30 13:02 | PC.NURSE ---
Report to the Outpatient Waiting Room, entrance under the green pavilion located off [facility], at time 0715 on date 12/09/22. Planned Procedure Time: 0915. Time changes happen often and if your time is changed the preop area will call you the afternoon before. - You and your visitor will be asked to self-screen and do not enter if you have any COVID symptoms. - A mask is optional within the hospital at this time. Patients may have clear liquids (water, carbonated beverages, clear teas, apple juice) until 3 hours prior to surgery with a maximum of 20 ounces. - No food from midnight until time of surgery Take the following medications with a SIP of water the morning of surgery: CONTROL PILL DO NOT STOP ANY OF YOUR OTHER PRESCRIPTION MEDICATIONS PRIOR TO SURGERY ?EXCEPT THE FOLLOWING Medications to discontinue per physician: N/A Date to take last dose: N/A Please no make-up, nail central african, hairspray, perfume, deodorant, or body powder the day of surgery. No jewelry (including any body piercings) or valuables the day of surgery, leave them at home. Please take a shower or bath the night before, or the morning of, surgery with an antibacterial soap. Wear comfortable, loose fitting clothing. - Jewelry must be removed prior to entering the operating room. Rings and piercings that are not removed may be cut off. - The hospital will not accept responsibility for valuables. - Please leave all valuables, including medications, at home the day of surgery. If you are going home after surgery, a licensed flatbed truck driver must drive you home. - NO public transportation without another adult if you receive anesthesia. - We recommend that an adult stay with you for 24 hours following discharge. - We also recommend that you do not drive, make important decision, drink alcoholic beverages, or take any drugs that were not prescribed by your health care provider for at least 24 hours after your discharge time. Follow any additional instructions given to you from your surgeon. If you or anyone in your household have experienced Covid symptoms in the past week, please notify your surgeon or the nurse liaison at the phone number below for possible testing. Telephone instructions given to PT - TRAN PRUETT and asked if any additional questions and then verbalized understanding. Patient advised to call surgeon office or pre surgery nurse liaison [phone] if any additional questions.
[2022-12-09] VITALS (8 sets, daily range): BP systolic 110–146; BP diastolic 67–99; PULSE 82–111; RESP 12–40; TEMP 36.4; O2SAT 96–100
--- NOTE | 2022-12-09 07:18 | PM.IMHP ---
H&P: HPI History of Present Illness Date/Time: 12/09/22 07:18 Chief Complaint: Chronic pelvic pain Narrative: She is a 22 y/o G0 with long history of chronic pelvic pain. She had normal pelvic ultrasound, neg work up for infections. She also has a history of infertility. Not currently attempting . She has cyclic pain which she describes as severe not relieved with NSAIDs and affects her social activities. She has a family history of endometriosis. Laparoscopy recommended for further evaluation. Review of Systems Review of Systems: All systems reviewed & are unremarkable except as noted in HPI and below Cardiovascular: Cardiovascular: Reports no additional cardiovascular complaints, Denies chest pain and Denies dyspnea Respiratory: Respiratory: Reports no additional respiratory complaints and Denies dyspnea Gastrointestinal: Gastrointestinal: Reports abdominal pain, Denies change in bowel habits, Denies diarrhea, Denies nausea and Denies vomiting Genitourinary: Genitourinary: Reports pelvic pain Musculoskeletal: Musculoskeletal: Reports back pain Integumentary/Breasts: Skin/Breast: Reports system reviewed and no additional complaints, except as docu Neurologic: Reports system reviewed and no additional complaints, except as documented PMF Past Medical History Medical History Anxiety Bloating Constipation Depression GERD (gastroesophageal reflux disease) Hypertension PCOS (polycystic ovarian syndrome) Surgical History Surgical History [place] teeth removed Family History Family History Mother Heart disease Depression Anxiety Social History Social History Smoking status: Current every day smoker Tobacco type: e-cigarettes/vaping Alcohol intake: never Substance use: never Substance use type: does not use Lack of Transportation: No Lack of Food: Never True Current Housing: I Have Housing Concerned About Future Housing: No Difficulty Paying Gas/Electric Bills: No Difficulty Paying for Meds: No Currently Unemployed: No Education: High School Diploma/GED Difficulty w/ Childcare or Family Care: No Living arrangements: with family Additional living arrangements comments: [facility] Gender identity (if verbalized by the patient): Female Spiritual care concerns: No Meds Home Medications and Allergies Home Medications Medication Instructions Recorded Confirmed Type norethindrone 1 mg-ethinyl 1 tablet PO DAILY #84 tabs 10/31/22 12/09/22 Rx estradiol 20 mcg (21)-iron 75 mg (7) tablet (Loestrin Fe 04/22 (28-Day)) Allergies Allergy/AdvReac Type Severity Reaction Status Date / Time guaifenesin [From Mucinex] Allergy Unknown Verified 12/09/22 07:14 amoxicillin AdvReac Diarrhea Verified 12/09/22 07:14 Exam Const: Orientation/consciousness: oriented to person and oriented to place HENMT: Head: normal to inspection Eyes: General: appearance normal, both eyes and all related structures Resp: Effort & Inspection: normal respiratory effort Auscultation: clear to auscultation bilaterally Cardio: Rate: regular rate Rhythm: regular rhythm GI: Inspection: normal to inspection GI Palp: No Rebound tenderness present Neuro: General: oriented to person and oriented to place Cognition (Neuro): normal cognition Extrem: General: normal to inspection Psych: Appearance: grossly normal and well kempt Assessment and Plan Assessment and plan (1) Pelvic pain: Code(s): R10.2 - Pelvic and perineal pain Status: Acute Assessment and Plan: Chronic. Will proceed with diagnostic laparoscopy.
[2022-12-09] MEDS: KETOROLAC 15 MG/ML VIAL (*BKC) IV PUSH (07:39)
[2022-12-09] MEDS: ACETAMINOPHEN 500 MG TABLET 1000 MG PO (07:40)
--- NOTE | 2022-12-09 08:03 | WPDHPUPDATE1 ---
History and Physical Update Update Date/Time: 12/09/22 08:03 History and Physical has been reviewed, including an updated exam of the patient. There are NO changes in the patient's condition. Risks, benefits, and alternatives have been discussed and questions answered. Patient agrees to proceed with procedure.
--- NOTE | 2022-12-09 08:20 | WPDANESEPPF ---
Anes - Initial Pre Proc Eval Procedure: Operation Date: 12/09/22 08:30 Proposed Procedures p Diagnostic Laparoscopy - Femi Ramírez MD Date/Time: 12/09/22 08:20 Surgeon: Femi Ramírez MD Pre Op Diagnosis: Chr Pelvic Pain Patient Data Age: 22 Gender: F Height: 1.66 m Weight: 116.3 kg Last Vital Signs Temp 36.4 C 12/09/22 06:53 Pulse 82 12/09/22 06:53 Resp 18 12/09/22 06:53 BP 138/73 12/09/22 06:53 Pulse Ox 100 12/09/22 06:53 O2 Del Method Room Air 12/09/22 06:53 Allergies Allergy/AdvReac Type Severity Reaction Status Date / Time guaifenesin [From Mucinex] Allergy Unknown Verified 12/09/22 07:14 amoxicillin AdvReac Diarrhea Verified 12/09/22 07:14 Home Medications Medication Instructions Recorded Confirmed Type norethindrone 1 mg-ethinyl 1 tablet PO DAILY #84 tabs 10/31/22 12/09/22 Rx estradiol 20 mcg (21)-iron 75 mg (7) tablet (Loestrin Fe 04/22 (28-Day)) Patient hx anesthesia problems: none Family hx anesthesia problems: none Results Review: All pre-operative results and documents have been reviewed as part of the pre-operative evaluation. [facility] Past Medical History Medical History Anxiety Bloating Constipation Depression GERD (gastroesophageal reflux disease) Hypertension PCOS (polycystic ovarian syndrome) Surgical History Surgical History [place] teeth removed Family History Family History Mother Heart disease Depression Anxiety Social History Social History Smoking status: Current every day smoker Tobacco type: e-cigarettes/vaping Alcohol intake: never Substance use: never Substance use type: does not use Lack of Transportation: No Lack of Food: Never True Current Housing: I Have Housing Concerned About Future Housing: No Difficulty Paying Gas/Electric Bills: No Difficulty Paying for Meds: No Currently Unemployed: No Education: High School Diploma/GED Difficulty w/ Childcare or Family Care: No Living arrangements: with family Additional living arrangements comments: [place] Gender identity (if verbalized by the patient): Female Spiritual care concerns: No Anes - Eval Final PreProcedure Day of Procedure 12/09/22 08:20 Patient weight: morbidly obese Heart: regular rate and rhythm Lungs: clear to auscultation Airway: Mallampati scale class II Neurological: alert and oriented Last oral intake: >/= 8 hours ASA classification: III Emergent: no Anesthetic plan: proceed Anesthesia type and monitoring: general ETT and standard monitoring Results Review: All pre-operative results and documents have been reviewed as part of the pre-operative evaluation. Informed Consent: The patient's anesthetic plan and its attendant risks and benefits were discussed with the patient/family/POA. Questions were solicited and answers provided to the satisfaction of the patient/family/POA.
[2022-12-09] MEDS: LACTATED RINGERS 1,000 ML 30 ML IV CONT ×2 (09:38)
--- NOTE | 2022-12-09 09:41 | W.PM.PROC2 ---
Procedure Note - Detailed Date of Procedure 12/09/22 Pre-op Diagnosis Chr Pelvic Pain Post-op Diagnosis Same (2. Severe endometriosis) Procedure Performed Diagnostic laparoscopy Surgeon Femi Ramírez MD Anesthesia General Indications Chronic pelvic pain Findings multiple endometriosis implants most deep in the bilateral pelvic side wall, anterior cul de sac, periintestinal fat,, posterior cul de sac, left lateral anterior abdominal wall, normal appearing ovaries bilateral, normal liver Description of Procedure After informed consent was obtained patient was taken to the operating room and adequate general endotracheal anesthesia was administered. She was placed in low lithotomy position and prepped and draped in sterile fashion. The bladder was drained of 300 cc of light yellow urine. Attention was turned to the vagina speculum was inserted single-tooth tenaculum placed on the anterior lip of the cervix. Uterus was sound to 8 cm. The acorn uterine manipulator was placed into the cervix canal. With new sterile gloves attention was turned to the abdomen and 6 cc of 0.25% Marcaine was injected at the umbilicus and a vertical incision was made with the scalpel. The Veress needle was inserted fully and did not confirm and passage into the peritoneum. Therefore a longer Veress needle was inserted and this also did not confirm that it had entered the peritoneum due to higher peritoneal pressures. At this time decided to use the Optiview to enter this was used with a 5 mm port and the peritoneum was entered. She was placed in Trendelenburg position the pneumoperitoneum was 15 mm per mercury. Attention was turned to the left abdominal wall and an incision was made and a 5 mm port was inserted under laparoscopic visualization. The pelvis was visualized. The findings per above. Decision was made not to remove any of the endometriosis due to the deepness and also she would more likely have better benefit with getting the endometriosis ablated with the laser which she will have to be referred out for this. The ports were removed. The pneumoperitoneum was released. The acorn manipulator was removed. The skin incisions were closed with 4-0 Vicryl. Sponge count was correct she was extubated in operating room and taken to recovery in stable condition. Estimated Blood Loss 5 Drains No Packing No Pathology None sent Complications No immediate complications Condition Stable Disposition Same day [facility] Billing Surgery - Charge Forward: Surgery Billing
== END 2022-12-09 11:28 | disposition home or self-care (01) ==
PROVIDERS: Visit Provider Obstetrics & Gynecology
PROC: (CPT 49320; principal; 2022-12-09 08:30)
DX: N80.353 Endometriosis of bilateral pelvic sidewall, unspecified depth (principal); N80.319 Endometriosis of the anterior cul-de-sac, unspecified depth; N80.329 Endometriosis of the posterior cul-de-sac, unspecified depth; N80.C19 Endometriosis of the anterior abdominal wall, unspecified depth; N80.399 Endometriosis of the pelvic peritoneum, other specified sites, unspecified depth; F17.290 Nicotine dependence, other tobacco product, uncomplicated; E66.01 Morbid (severe) obesity due to excess calories; Z68.41 Body mass index [BMI] 40.0-44.9, adult
CPT/HCPCS: 49320; A9270; J1100; J1885; J2250; J2405; J2704; J3010; J7030; J7120

== ENCOUNTER 2023-09-07 01:29 | Emergency (ER) | payer BC, SELFPAY ==
[2023-09-07 01:32] VITALS: BP 137/90; PULSE 89; RESP 20; TEMP 36.9; O2SAT 98
--- NOTE | 2023-09-07 04:40 | ED.GENADULT ---
HPI - General Adult General Chief complaint: Skin/Abscess/Foreign Body Stated complaint: mrsa outbreak Time Seen by Provider: 09/07/23 04:33 History of Present Illness HPI narrative: Patient is a 23-year-old female who presents to the emergency department this evening concerned for a skin infection. Patient has some spots on her right ankle, left thigh and right torso which initially started out as a pimple and then developed into a fletcher. 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 Other than the spots that she has noticed, she denies any additional symptoms including chest pain or shortness of breath, fevers or chills, nausea vomiting or abdominal pain. She denies any urinary symptoms. No additional symptoms or concerns at this time. Related Data Allergies Allergy/AdvReac Type Severity Reaction Status Date / Time guaifenesin [From Mucinex] Allergy Unknown Verified 09/07/23 02:13 amoxicillin AdvReac Diarrhea Verified 09/07/23 02:13 Review of Systems Review of Systems: All systems are reviewed and are negative unless stated otherwise in the HPI. PMFSH Past Medical History Medical History Anxiety Bloating Constipation Depression GERD (gastroesophageal reflux disease) Hypertension PCOS (polycystic ovarian syndrome) Surgical History Surgical History S/P laparoscopy (~12/2022) Tank [place] teeth removed Family History Family History Mother Heart disease Depression Anxiety Social History Social History Smoking status: Current every day smoker Tobacco type: e-cigarettes/vaping Alcohol intake: never Substance use: never Substance use type: does not use Lack of Transportation: No Lack of Food: Never True Current Housing: I Have Housing Concerned About Future Housing: No Difficulty Paying Gas/Electric Bills: No Difficulty Paying for Meds: No Currently Unemployed: No Education: High School Diploma/GED Difficulty w/ Childcare or Family Care: No Living arrangements: with family Additional living arrangements comments: [facility] Gender identity (if verbalized by the patient): Female Spiritual care concerns: No Exam Narrative: General: Alert, awake, afebrile, in no acute distress. HEENT: PERRL, no rhinorrhea, no post nasal drip, oropharynx clear. Cardiovascular: Regular rate and rhythm, no murmurs, rubs or gallops, no peripheral edema. Respiratory: Clear to auscultation bilaterally, no tachypnea, no wheezing, no rhonchi, no rubs, no respiratory distress. Abdomen: Soft, nontender, nondistended, no rebound, no guarding, no peritoneal signs. Musculoskeletal: No joint swelling or deformity, normal muscle tone. Skin: Multiple spots mainly noted along the patient's left upper inner thigh, left breast and right torso which resemble papules although some do some clear drainage, mild surrounding erythema, no abscess identified. Psychiatric: Alert and oriented, normal behavior and judgment for situation. Neurological: Alert and oriented to person, place, and time. Follows all commands. No focal deficits, speech is clear and fluent. Course Vital Signs Vital signs: Vital Signs Temperature 98.5 F 09/07/23 01:32 Pulse Rate 89 09/07/23 01:32 Respiratory Rate 20 09/07/23 01:32 Blood Pressure 137/90 09/07/23 01:32 Pulse Oximetry 98 09/07/23 01:32 Oxygen Delivery Room Air 09/07/23 01:32 Temperature 98.5 F 09/07/23 01:32 Pulse Rate 89 09/07/23 01:32 Respiratory Rate 20 09/07/23 01:
== END 2023-09-07 05:07 | disposition home or self-care (01) ==
PROVIDERS: Emergency Provider Emergency Medicine
DX: L03.116 Cellulitis of left lower limb (principal); L03.115 Cellulitis of right lower limb; L03.311 Cellulitis of abdominal wall; I10 Essential (primary) hypertension; E28.2 Polycystic ovarian syndrome; K21.9 Gastro-esophageal reflux disease without esophagitis; F17.290 Nicotine dependence, other tobacco product, uncomplicated; Z86.14 Personal history of Methicillin resistant Staphylococcus aureus infection
CPT/HCPCS: 99283

== ENCOUNTER 2023-09-28 15:03 | Outpatient (CLI) | payer BC, SELFPAY ==
[2023-09-28 15:27] LABS: Basophils Percent Auto 0.3 % (0.2-1.2); Eosinophils Absolute Auto 0.1 K/mm3 (0-0.3); Eosinophils Percent Auto 0.9 % (0-4.4); Hematocrit 44.5 % (37.0-47.0); Hemoglobin 14.7 g/dL (12.0-15.0); Immature Granulocyte Absolute 0.01 K/mm3 (0.00-0.031); Immature Granulocyte Percent A 0.1 % (0-0.5); Lymphocytes Absolute Auto 2.34 K/mm3 (0.9-3.2); Lymphocytes Percent Auto 33.5 % (18.3-44.2); Mean Corpuscular Hemoglobin 28.4 pg (26-34); Mean Corpuscular Volume 86.1 fl (80-100); Mean Platelet Volume 10.9 fl (7.4-10.4); Monocytes Absolute Auto 0.4 K/mm3 (0.1-0.6); Monocytes Percent Auto 6.2 % (2.6-8.5); Neutrophils Absolute Auto 4.1 K/mm3 (1.3-6.7); Platelet Count Result 283 k/mm3 (150-375); Red Blood Count 5.17 M/mm3 (4.2-5.4); Red Cell Distribution Width 13.2 % (11.5-14.5)
[2023-09-28 16:31] LABS: Iron 85 ug/dL (37-170)
[2023-09-28 17:15] LABS: Alanine Aminotransferase 125 U/L (6-35); Albumin Level 4.4 g/dL (3.5-5.1); Alkaline Phosphatase 75 U/L (38-126); Anion Gap 9 mmol/L (4-12); Aspartate Amino Transferase 170 U/L (14-36); Bilirubin,Total 0.6 mg/dL (0.2-1.3); Blood Urea Nitrogen 15 mg/dL (7-17); Calcium 9.5 mg/dL (8.4-10.2); Carbon Dioxide 24 mmol/L (22-30); Chloride 107 mmol/L (98-107); Cholesterol 150 mg/dL (0-200); Estimated Glomerular Filt Rate > 60; Glucose 91 mg/dL (65-110); HDL Direct 53 mg/dL; Potassium 4.6 mmol/L (3.4-5.0); Sodium 140 mmol/L (137-145); Triglycerides 233 mg/dL (<150)
[2023-09-28 17:29] LABS: LDL Cholesterol Direct 69 mg/dL
[2023-09-28 18:43] LABS: Hemoglobin A1C 5.1 % (<5.7)
== END 2023-09-28 15:04 | disposition home or self-care (01) ==
LOC: ANHLAB 15:07
PROVIDERS: Visit Provider Nurse Practitioner
DX: Z13.21 Encounter for screening for nutritional disorder (principal); E28.2 Polycystic ovarian syndrome; R73.03 Prediabetes; R42 Dizziness and giddiness; Z83.3 Family history of diabetes mellitus; N95.1 Menopausal and female climacteric states
CPT/HCPCS: 36415; 80053; 80061; 82607; 83036; 83540; 84443; 85025

== ENCOUNTER 2023-10-30 15:08 | Outpatient (CLI) | payer BC, SELFPAY ==
[2023-10-30 15:45] LABS: Alanine Aminotransferase 143 U/L (6-35); Albumin Level 4.2 g/dL (3.5-5.1); Alkaline Phosphatase 69 U/L (38-126); Aspartate Amino Transferase 165 U/L (14-36); Bilirubin,Total 0.5 mg/dL (0.2-1.3)
== END 2023-10-30 15:09 | disposition home or self-care (01) ==
LOC: ANHLAB 15:14
PROVIDERS: PCP Nurse Practitioner; Visit Provider Nurse Practitioner
DX: E53.8 Deficiency of other specified B group vitamins (principal); K76.0 Fatty (change of) liver, not elsewhere classified
CPT/HCPCS: 36415; 80076; 82607

== ENCOUNTER 2024-01-30 11:46 | Outpatient (CLI) | payer BC, SELFPAY ==
[2024-01-30 12:32] LABS: Alanine Aminotransferase 228 U/L (6-35); Alkaline Phosphatase 89 U/L (38-126); Anion Gap 9 mmol/L (4-12); Aspartate Amino Transferase 162 U/L (14-36); Bilirubin,Total 0.5 mg/dL (0.2-1.3); Blood Urea Nitrogen 12 mg/dL (7-17); Calcium 9.2 mg/dL (8.4-10.2); Carbon Dioxide 25 mmol/L (22-30); Chloride 103 mmol/L (98-107); Estimated Glomerular Filt Rate > 60; Glucose 93 mg/dL (65-110); Potassium 3.7 mmol/L (3.4-5.0); Sodium 137 mmol/L (137-145)
== END 2024-01-30 11:47 | disposition home or self-care (01) ==
LOC: ANHLAB 11:50
PROVIDERS: PCP Nurse Practitioner; Visit Provider Nurse Practitioner
DX: K76.0 Fatty (change of) liver, not elsewhere classified (principal); R79.89 Other specified abnormal findings of blood chemistry
CPT/HCPCS: 36415; 80053

== ENCOUNTER 2024-02-21 14:56 | Emergency (ER) | payer BC, SELFPAY ==
[2024-02-21 15:00] VITALS: BP 142/94; PULSE 84; RESP 16; TEMP 36.6; O2SAT 100
--- NOTE | 2024-02-21 15:25 | ED_ITS ---
HPI - Female Genitourinary General Chief complaint: Vaginal Bleeding <Marialuisa Sainz APRN - Last Filed: 02/21/24 15:27> Stated complaint: vaginal bleeding, 9 weeks <Marialuisa Sainz APRN - Last Filed: 02/21/24 15:27> Time Seen by Provider: 02/21/24 15:00 <Marialuisa Sainz APRN - Last Filed: 02/21/24 15:27> Patient is a 23-year-old female who presents to the ER with vaginal bleeding. She reports she is 9 weeks and the with light red discharge with some brown spots. Patient reports the bleeding isn't heavy, but she wanted to come in for evaluation. Patient reports she does have an OBGYN who she saw a couple of weeks ago. She reports her estimated due date is October 01. This is patient's 1st . She denies shortness of breath, chest pain, fevers, other signs/ symptoms of infection. <Marialuisa Sainz APRN - Last Filed: 02/21/24 15:27> Source: patient <Mathew Motley PA-C - Last Filed: 02/22/24 01:37> Mode of arrival: ambulatory <Mathew Motley PA-C - Last Filed: 02/22/24 01:37> Limitations: no limitations <Mathew Motley PA-C - Last Filed: 02/22/24 01:37> History of Present Illness HPI Narrative: Agree with triage note above <Mathew Motley PA-C - Last Filed: 02/22/24 01:37> Related Data Allergies/Adverse reactions: Allergies Allergy/AdvReac Type Severity Reaction Status Date / Time guaifenesin [From Mucinex] Allergy Unknown Verified 09/07/23 02:13 amoxicillin AdvReac Diarrhea Verified 09/07/23 02:13 <PRUDENCE Sheehan Last Filed: 02/21/24 15:27> PMFSH Past Medical History Medical History: Medical History Anxiety Bloating Constipation Depression GERD (gastroesophageal reflux disease) Hypertension PCOS (polycystic ovarian syndrome) <Marialuisa Sainz APRN - Last Filed: 02/21/24 15:27> Surgical History Surgical History: Surgical History S/P laparoscopy (~12/2022) Tank Ramírez [place] teeth removed <Marialuisa Sainz APRN - Last Filed: 02/21/24 15:27> Family History Family History: Family History Mother Heart disease Depression Anxiety <Marialuisa Sainz APRN - Last Filed: 02/21/24 15:27> Social History Social History: Social History Smoking status: Current every day smoker Tobacco type: e-cigarettes/vaping Alcohol intake: never Substance use: never Substance use type: does not use Lack of Transportation: No Lack of Food: Never True Current Housing: I Have Housing Concerned About Future Housing: No Difficulty Paying Gas/Electric Bills: No Difficulty Paying for Meds: No Currently Unemployed: No Education: High School Diploma/GED Difficulty w/ Childcare or Family Care: No Living arrangements: with family Additional living arrangements comments: [facility] Gender identity (if verbalized by the patient): Female Spiritual care concerns: No <Marialuisa Sainz, [employer]ISHED [employer] - Last Filed: 02/21/24 15:27> Course Vital Signs Vital signs: Vital Signs Temperature 98 F 02/21/24 15:00 Pulse Rate 84 02/21/24 15:00 Respiratory Rate 16 02/21/24 15:00 Blood Pressure 142/94 H 02/21/24 15:00 Pulse Oximetry 100 02/21/24 15:00 Oxygen Delivery Room Air 02/21/24 15:00 Temperature 98 F 02/21/24 15:00 Pulse Rate 77 02/21/24 19:10 Respiratory Rate 16 02/21/24 19:10 Blood Pressure 118/71 02/21/24 19:10 Pulse Oximetry 100 02/21/24 19:10 Oxygen Delivery Room Air 02/21/24 15:00 <Marialuisa Sainz, [employer]ISHED [employer] - Last Filed: 02/21/24 15:27> Vital Signs Temperature 98 F 02/21/24 15:00 Pulse Rate 84 02/21/24 15:00 Respiratory Rate 16 02/21/24 15:00 Blood Pressure 142/94 H 02/21/24 15:00 Pulse Oximetry 100 02/21/24 15:00 Oxygen Delivery Room Air 02/21/24 15:00 Temperature 98 F 02/21/24 15:00 Pulse Rate 77 02/21/24 19:10 Respiratory Rate 16 02/21/24 19:10 Blood Pressure 118/71 02/21/24 19:10 Pulse Oximetry 100 02/21/24 19:10 Oxygen Delivery Room Air 02/21/24 15:00 <Mathew Motley PA-C - Last Filed: 02/22/24 01:37> MDM - Female Genitourinary MDM Narrative Medical decision making narrative: This is a 23-year-old female who presents to the ED for chief complaint of vaginal bleeding/spotting onset today. She is around 9 weeks with her 1st .. Exam is benign. She is not having any abdominal pain. Symptoms are starting to subside on my arrival. Lab work shows normal CBC and mild elevations to AST ALT on the CMP. Gonorrhea chlamydia [place] [address] This ultrasound unavailable. Patient has had previous ultrasound showing intrau terine . No concern for ectopic today. Discussed with the patient that these symptoms are concerning for a possible miscarriage however it is reassuring that she is not having abdominal cramping. She has an OB follow-up soon. I encouraged her to follow-up closely and return to the ER for any new or worsening symptoms. Patient will be discharged in stable condition. Supportive measures discussed and return precautions given. Patient is understanding and agreeable with plan for discharge with PCP/OB follow-up <Mathew Motley PA-C - Last Filed: 02/22/24 01:37> Lab Data Result diagrams: 02/21/24 15:40 02/21/24 15:40 <Marialuisa Sainz APRN - Last Filed: 02/21/24 15:27> Labs: Lab Results 02/21/24 02/21/24 Range/Units 15:40 16:06 WBC 8.3 (4.5-10.0) K/mm3 RBC 4.77 (4.2-5.4) M/mm3 Hgb 13.6 (12.0-15.0) g/dL Hct 41.1 (37.0-47.0) % MCV 86.2 (80-100) fl MCH 28.5 (26-34) pg MCHC 33.1 (32-36) g/dl RDW 13.1 (11.5-14.5) % Plt Count 251 (150-375) k/mm3 MPV 10.9 H (7.4-10.4) fl Immature Gran % (Auto) 0.4 (0-0.5) % Neut % (Auto) 64.9 (45.5-73.1) % Lymph % (Auto) 28.9 (18.3-44.2) % [place] % (Auto) 4.6 (2.6-8.5) % Eos % (Auto) 1.0 (0-4.4) % Baso % (Auto) 0.2 (0.2-1.2) % Lymph # (Auto) 2.41 (0.9-3.2) K/mm3 [place] # (Auto) 0.4 (0.1-0.6) K/mm3 Eos # (Auto) 0.1 (0-0.3) K/mm3 Baso # (Auto) 0.0 (0.0-0.1) K/mm3 Abs Immat Gran (auto) 0.03 (0.00-0.031) K/mm3 Absolute Neuts (auto) 5.4 (1.3-6.7) K/mm3 Absolute Nucleated RBC 0.000 (0.0-0.012) K/mm3 Nucleated RBC % 0.0 (0.0-0.2) % PT 13.6 (11.1-14.7) Seconds INR 1.0 APTT 28.0 (22.3-36.8) Seconds Sodium 136 L (137-145) mmol/L Potassium 4.1 (3.4-5.0) mmol/L Chloride 104 (98-107) mmol/L Carbon Dioxide 24 (22-30) mmol/L Anion Gap 8 (4-12) mmol/L BUN 11 (7-17) mg/dL Creatinine 0.70 (0.7-1.0) mg/dL Estim Creat Clear Calc 140 ml/min Estimated GFR > 60 (59 - ) Glucose 91 (65-110) mg/dL Calcium 9.5 (8.4-10.2) mg/dL Total Bilirubin 0.5 (0.2-1.3) mg/dL AST 165 H (14-36) U/L ALT 228 H (6-35) U/L Alkaline Phosphatase 87 (38-126) U/L Total Protein 8.0 (6.3-8.2) g/dL Albumin 4.2 (3.5-5.1) g/dL Beta HCG, Quant 32870.00 mIU/ML C. trachomatis (PCR) Not detected (NOT DETECTE) N. gonorrhoeae (PCR) Not detected (NOT DETECTE) <Marialuisa Sainz, [employer]ISHED [employer] - Last Filed: 02/21/24 15:27> Lab Results 02/21/24 02/21/24 Range/Units 15:40 16:06 WBC 8.3 (4.5-10.0) K/mm3 RBC 4.77 (4.2-5.4) M/mm3 Hgb 13.6 (12.0-15.0) g/dL Hct 41.1 (37.0-47.0) % MCV 86.2 (80-100) fl MCH 28.5 (26-34) pg MCHC 33.1 (32-36) g/dl RDW 13.1 (11.5-14.5) % Plt Count 251 (150-375) k/mm3 MPV 10.9 H (7.4-10.4) fl Immature Gran % (Auto) 0.4 (0-0.5) % Neut % (Auto) 64.9 (45.5-73.1) % Lymph % (Auto) 28.9 (18.3-44.2) % [place] % (Auto) 4.6 (2.6-8.5) % Eos % (Auto) 1.0 (0-4.4) % Baso % (Auto) 0.2 (0.2-1.2) % Lymph # (Auto) 2.41 (0.9-3.2) K/mm3 [place] # (Auto) 0.4 (0.1-0.6) K/mm3 Eos # (Auto) 0.1 (0-0.3) K/mm3 Baso # (Auto) 0.0 (0.0-0.1) K/mm3 Abs Immat Gran (auto) 0.03 (0.00-0.031) K/mm3 Absolute Neuts (auto) 5.4 (1.3-6.7) K/mm3 Absolute Nucleated RBC 0.000 (0.0-0.012) K/mm3 Nucleated RBC % 0.0 (0.0-0.2) % PT 13.6 (11.1-14.7) Seconds INR 1.0 APTT 28.0 (22.3-36.8) Seconds Sodium 136 L (137-145) mmol/L Potassium 4.1 (3.4-5.0) mmol/L Chloride 104 (98-107) mmol/L Carbon Dioxide 24 (22-30) mmol/L Anion Gap 8 (4-12) mmol/L BUN 11 (7-17) mg/dL Creatinine 0.70 (0.7-1.0) mg/dL Estim Creat Clear Calc 140 ml/min Estimated GFR > 60 (59 - ) Glucose 91 (65-110) mg/dL Calcium 9.5 (8.4-10.2) mg/dL Total Bilirubin 0.5 (0.2-1.3) mg/dL AST 165 H (14-36) U/L ALT 228 H (6-35) U/L Alkaline Phosphatase 87 (38-126) U/L Total Protein 8.0 (6.3-8.2) g/dL Albumin 4.2 (3.5-5.1) g/dL Beta HCG, Quant 83615.00 mIU/ML C. trachomatis (PCR) Not detected (NOT DETECTE) N. gonorrhoeae (PCR) Not detected (NOT DETECTE) <Mathew Motley PA-C - Last Filed: 02/22/24 01:37> Discharge Plan Discharge Clinical Impression: Vaginal bleeding, Threatened miscarriage <Marialuisa Sainz APRN - Last Filed: 02/21/24 15:27> Patient Disposition: Home, Self-Care <Marialuisa Sainz APRN - Last Filed: 02/21/24 15:27> Condition: Stable <Marialuisa Sainz APRN - Last Filed: 02/21/24 15:27> Instructions: Antibiotic Form, Threatened Miscarriage (ED) <Marialuisa Sainz APRN - Last Filed: 02/21/24 15:27> Additional Instructions: Your exam today is concerning for threatened miscarriage. Please follow- up very closely with OB on this issue. If you experience heavy vaginal bleeding, pain or symptoms worsen please return to the ER for further evaluation. <Marialuisa Sainz APRN - Last Filed: 02/21/24 15:27> Prescriptions: No Action sulfamethoxazole-trimethoprim [Bactrim DS] 800-160 mg tablet 1 tablet PO Q12H 7 Days Qty: 14 0RF norethindrone-e.estradiol-iron [Loestrin Fe 04/22 (28-Day)] 1 mg-20 mcg (21)/75 mg (7) tablet 1 tablet PO DAILY Qty: 84 0RF <Marialuisa Sainz APRN - Last Filed: 02/21/24 15:27> Follow-up/Referrals: Gloria,Renita Reyes APRN [Primary Care Provider] - <Marialuisa Sainz APRN - Last Filed: 02/21/24 15:27> Time of Disposition: 18:57 <Marialuisa Sainz APRN - Last Filed: 02/21/24 15:27> 18:57 <Mathew Motley PA-C - Last Filed: 02/22/24 01:37>
[2024-02-21 15:55] LABS: Basophils Percent Auto 0.2 % (0.2-1.2); Eosinophils Absolute Auto 0.1 K/mm3 (0-0.3); Hematocrit 41.1 % (37.0-47.0); Hemoglobin 13.6 g/dL (12.0-15.0); Immature Granulocyte Absolute 0.03 K/mm3 (0.00-0.031); Immature Granulocyte Percent A 0.4 % (0-0.5); Lymphocytes Absolute Auto 2.41 K/mm3 (0.9-3.2); Lymphocytes Percent Auto 28.9 % (18.3-44.2); Mean Corpuscular HGB Conc 33.1 g/dl (32-36); Mean Corpuscular Hemoglobin 28.5 pg (26-34); Mean Corpuscular Volume 86.2 fl (80-100); Mean Platelet Volume 10.9 fl (7.4-10.4); Monocytes Absolute Auto 0.4 K/mm3 (0.1-0.6); Monocytes Percent Auto 4.6 % (2.6-8.5); Neutrophils Absolute Auto 5.4 K/mm3 (1.3-6.7); Neutrophils Percent Auto 64.9 % (45.5-73.1); Platelet Count Result 251 k/mm3 (150-375); Red Blood Count 4.77 M/mm3 (4.2-5.4); Red Cell Distribution Width 13.1 % (11.5-14.5); White Blood Count 8.3 K/mm3 (4.5-10.0)
[2024-02-21 16:06] LABS: Prothrombin Time 13.6 Seconds (11.1-14.7)
[2024-02-21 16:08] LABS: Alanine Aminotransferase 228 U/L (6-35); Albumin Level 4.2 g/dL (3.5-5.1); Alkaline Phosphatase 87 U/L (38-126); Anion Gap 8 mmol/L (4-12); Aspartate Amino Transferase 165 U/L (14-36); Bilirubin,Total 0.5 mg/dL (0.2-1.3); Blood Urea Nitrogen 11 mg/dL (7-17); Calcium 9.5 mg/dL (8.4-10.2); Carbon Dioxide 24 mmol/L (22-30); Chloride 104 mmol/L (98-107); Estimated CRCL calculation 140 ml/min; Estimated Glomerular Filt Rate > 60; Glucose 91 mg/dL (65-110); Potassium 4.1 mmol/L (3.4-5.0); Sodium 136 mmol/L (137-145)
[2024-02-21 17:39] LABS: Chlamydia trachomatis NOT DETECTED (NOT DETECTE); Neisseria gonorrhoeae PCR NOT DETECTED (NOT DETECTE)
[2024-02-21 19:10] VITALS: BP 118/71; PULSE 77; RESP 16; O2SAT 100
== END 2024-02-21 19:10 | disposition home or self-care (01) ==
PROVIDERS: Registered Nurse; Emergency Provider Physician Assistant; PCP Nurse Practitioner
DX: O20.0 Threatened abortion (principal); Z3A.09 9 weeks gestation of pregnancy; O99.331 Smoking (tobacco) complicating pregnancy, first trimester; F17.290 Nicotine dependence, other tobacco product, uncomplicated
CPT/HCPCS: 36415; 80053; 84702; 85025; 85610; 85730; 87491; 87591; 99284